=== PATIENT | male | born 1980 | race Caucasian/White ===

== ENCOUNTER 2019-02-27 14:08 | Emergency (ER) | payer BC, SELFPAY ==
[2019-02-27 14:16] VITALS: BP 114/60; PULSE 87; RESP 18; TEMP 36.9; O2SAT 97
--- NOTE | 2019-02-27 14:39 | DI.RAD_ITS ---
SYMPTOMS/DIAGNOSIS: COUGH CHEST: Frontal and lateral views. No priors. The heart size and pulmonary vasculature are within normal limits. There is a small infiltrate seen in the left lingula. The lungs are otherwise clear. No effusions or pneumothoraces are identified. The bones are intact. IMPRESSION: Left lingular infiltrate. This may represent atelectasis or pneumonia.
[2019-02-27 14:40] VITALS: TEMP 37.4
--- NOTE | 2019-02-27 14:42 | ED.GENADUL_ITS ---
Discharge Plan Disposition Patient Disposition: HOME Condition: Serious Discharge Details Chief Complaint: RespSymp Clinical Impression: Pneumonia Primary Care Provider: Glendy,Local ED Provider: Igor Merchant Home Meds and New Rx's Prescriptions: New doxycycline hyclate 100 mg tablet 100 mg PO BID Qty: 13 RF: 0 Discharge Instructions Instructions: Albuterol (By breathing), Bacterial Pneumonia (ED) Additional Instructions: Please take full course of antibiotic as prescribed. Drink plenty of fluid to stay hydrated and allow for plenty of rest. Please contact your primary care physician to arrange follow-up as scheduled. Return to the ER for any worsening or new concerning symptoms. Medical Decision Making 14:47 -- 39-year-old male here with productive cough, fever, chills and myalgias since early this a.m. Patient is saturating well and in no respiratory distress. He is afebrile and not tachycardic. ' Patient does have subtle wheeze. Plan to give albuterol inhaler and reassess. We will obtained chest x-ray to assess for consolidation. -- Cxr interpreted by radiology: IMPRESSION: Mild opacities in the lingula may represent atelectasis or pneumonia. Patient reassessed and remained stable. Wheeze resolved. Plan to treat for CAP with doxycycline. Patient was encouraged to stay well hydrated and allow for rest. Usual and customary discharge instructions were reviewed with the patient and his family. He verbalized understanding. HPI General Mode of arrival: ambulatory . Date/Time Provider Initiated Documentation: 02/27/19 14:10 . Limitations to Documentation: no limitations . Information obtained by: patient and family . HPI Narrative: 39-year-old male presents with chief complaint of cough. Patient notes cough started earlier this a.m. Cough has been productive of yellow sputum. Cough is moderate with no modifiers. Patient notes associated fever with significant diaphoresis and chills last night. He has also had myalgias today. Yesterday he was feeling fine. No recent long distance travel. No rash. No tick bite. No headache or neck stiffness. Patient took a dose of Tylenol around noon today. Patient does state that he has had a history of pneumonia in the past. He notes that he has had to use an inhaler for wheeze with prior lung infections. Related Data Home Medications Medication Instructions Recorded Confirmed doxycycline hyclate 100 mg PO BID #13 tab 02/27/19 Previous Rx's Medication Instructions Recorded doxycycline hyclate 100 mg PO BID #13 tab 02/27/19 Allergies Allergy/AdvReac Type Severity Reaction Status Date / Time No Known Allergies Allergy Unverified 02/27/19 14:20 General Stated Complaint: RespSymp BRYAN: 3 Review of Systems Review of Systems All systems reviewed & are unremarkable except as noted in HPI and below Constitutional Reports as per HPI, Reports body ache(s), Reports fever(s) and Denies weakness Cardiovascular Denies chest pain and Denies dyspnea Respiratory Reports as per HPI, Reports chest congestion, Reports cough, Denies hemoptysis and Denies dyspnea Gastrointestinal Denies abdominal pain, Denies nausea and Denies vomiting Musculoskeletal Reports as per HPI Integumentary/Breasts Reports as per HPI and Denies rash Neurologic Denies weakness Comments: fatigue Hematologic/Lymphatic Denies lymphadenopathy PFSH Social History Smoking/Tobacco Use Status: Never Alcohol Intake: current Alcohol Intake frequency: a few times a week Do you feel safe at home: Yes Do you feel safe in your relationship?: Yes Exam Const General: cooperative and no acute distress HENMT Head: normocephalic Mouth: moist mucous membranes Eyes Conjunctivae: normal conjunctivae Sclera: normal sclerae Neck Neck: no JVD Resp Auscultation: clear to auscultation bilaterally, no rales, rhonchi right lower and wheezes expiratory wheezes (faint bilateral) Cardio Jugular venous pressure: no JVD Rate: regular rate and not tachycardic Rhythm: regular rhythm GI Palpation: soft, not firm, no guarding, no masses, not rigid and nontender Skin General skin exam: no rashes or lesions noted Neuro General: alert, awake and tone normal Psych Appearance: grossly normal Mental Status: mental status grossly normal Course Vital Signs Temperature 36.9 C 02/27/19 14:16 Pulse 87 02/27/19 14:16 Respiratory Rate 18 02/27/19 14:16 Blood Pressure 114/60 02/27/19 14:16 Pulse Oximetry 97 02/27/19 14:16 Temperature 36.9 C 02/27/19 14:16 Temperature Source Skin 02/27/19 14:16 Pulse 87 02/27/19 14:16 Respiratory Rate 18 02/27/19 14:16 Respiratory Effort Non-Labored 05/25/19 14:21 Blood Pressure 114/60 02/27/19 14:16 Blood Pressure Position Sitting 02/27/19 14:16 Pulse Oximetry 97 02/27/19 14:16 Oxygen Delivery Method Room Air 02/27/19 14:16 Oxygen Flow Rate 0 02/27/19 14:16
[2019-02-27] MEDS: Albuterol HFA 8 GM 60 PUFF INH IH (14:46)
--- NOTE | 2019-02-27 15:44 | DI.VRAD_ITS ---
EXAM: XR Chest, 2 Views EXAM DATE/TIME: 02/27/2019 2:40 PM CLINICAL HISTORY: 39 years old, male; Signs and symptoms; Cough TECHNIQUE: Imaging protocol: XR of the chest, 2 views. COMPARISON: No relevant prior studies available. FINDINGS: Lungs: Mild opacities in the lingula may represent atelectasis or pneumonia. Pleural space: Unremarkable. No pleural effusion. No pneumothorax. Heart/Mediastinum: Unremarkable. No cardiomegaly. Bones/joints: Unremarkable. IMPRESSION: Mild opacities in the lingula may represent atelectasis or pneumonia. Dictated and Authenticated by: Agnieszka Parra MD. Ordering:NESTOR Costa MD
[2019-02-27 16:00] VITALS: TEMP 37.1
[2019-02-27] MEDS: Doxycycline Hyclate 100 MG CAP PO (16:03)
== END 2019-02-27 16:11 | disposition home or self-care (01) ==
PROVIDERS: Emergency Provider Student in an Organized Health Care Education/Training Program
DX: J18.9 Pneumonia, unspecified organism (principal)
CPT/HCPCS: 99283; 71046